=== PATIENT | male | born 1975 | race Caucasian/White ===

== ENCOUNTER 2017-01-17 10:51 | Emergency (ER) | payer OTHER ==
[~2017-01-17] VITALS: Ht 167.6 cm; Wt 86.6 kg
[~2017-01-17 10:51] MED LIST: CLINDAMYCIN HC300 MG PO; LEVAQUIN500 MG PO; NAPROSYN500 MG PO; VALACYCLOVIR500 MG PO
[2017-01-17 11:24] LABS: HEMATOCRIT 44.5 % (38.0-50.0); MCH 33.7 PG (29.0-34.0); MCHC 33.7 G/DL (30.0-36.0); MEAN PLAT.VOLUME 10.7 uM^3 (9.0-12.4); PLATELET COUNT 295 K/uL (156-360); RBC DIS.WIDTH-CV 12.5 % (11.8-14.6); RBC DIS.WIDTH-SD 46.2 % (39-53); RED BLOOD COUNT 4.45 M/uL (4.00-5.50); WHITE BLOOD COUNT 8.2 K/uL (4.1-10.2)
[2017-01-17 11:40] LABS: CHLORIDE 101 mEq/L (99-109); POTASSIUM 3.7 mEq/L (3.7-5.4); SODIUM 138 mEq/L (136-147)
[2017-01-17 11:42] LABS: GLUCOSE 149 mg/dL (70-99)
[2017-01-17 11:43] LABS: ANION GAP 9 MEQ/L (2-14)
[2017-01-17 11:44] LABS: TOTAL BILIRUBIN 0.7 mg/dL (0.0-1.0)
[2017-01-17 11:45] LABS: ALKALINE PHOSPHATASE 94 IU/L (3-129)
[2017-01-17 11:46] LABS: GFR ESTIMATE (CALCULATED) > 59 mL/min/
[2017-01-17 11:47] LABS: UREA NITROGEN (BUN) 10 mg/dL (9-23)
[2017-01-17 15:01] LABS: ADD MIUA? YES; BILIRUBIN NEGATIVE; BLOOD NEGATIVE; COLOR YELLOW ((YELLOW)); GLUCOSE (STRIP) NEGATIVE; KETONES NEGATIVE; LEUKOCYTES NEGATIVE; NITRITE NEGATIVE; PROTEIN (STRIP) NEGATIVE
[2017-01-17 15:04] LABS: BACTERIA RARE /HPF; EPITHELIAL CELLS RARE /HPF; MUCUS 1+ /LPF; RED BLOOD CELLS 0-5 /HPF (0-5); UCUL ADDED? NO; WHITE BLOOD CELLS 0-5 /HPF (0-5)
[2017-01-17] MEDS ORDERED: PRILOSEC20 MG PO (15:23)
[2017-01-17] MEDS ORDERED: BENTYL20 MG PO (15:23)
[2017-01-17] MEDS ORDERED: ZANTAC150 MG PO (15:23)
[2017-01-17 16:08] VITALS: BP 137/94
== END 2017-01-17 16:08 | disposition home or self-care (01) ==
LOC: EME 10:51
DX: R10.30 Lower abdominal pain, unspecified (principal); M54.5 Low back pain; K64.8 Other hemorrhoids; R73.03 Prediabetes; F06.4 Anxiety disorder due to known physiological condition; F10.10 Alcohol abuse, uncomplicated; F17.200 Nicotine dependence, unspecified, uncomplicated; Z71.6 Tobacco abuse counseling
CPT/HCPCS: 71020; 74020; 80053; 81003; 85027; 94640; 99281; 99285

== ENCOUNTER 2017-08-21 18:06 | Emergency (ER) | payer OTHER ==
[~2017-08-21] VITALS: Ht 167.6 cm; Wt 86.2 kg
[~2017-08-21 18:06] MED LIST changes: +BENTYL20 MG PO; +PRILOSEC20 MG PO; +ZANTAC150 MG PO
[2017-08-21 19:26] LABS: HEMATOCRIT 46.2 % (38.0-50.0); MCH 36.1 PG (29.0-34.0); MCHC 36.8 G/DL (30.0-36.0); MCV 98.1 FL (86-99); PLATELET COUNT 136 K/uL (156-360); RBC DIS.WIDTH-CV 12.7 % (11.8-14.6); RBC DIS.WIDTH-SD 46.5 % (39-53); RED BLOOD COUNT 4.71 M/uL (4.00-5.50); WHITE BLOOD COUNT 7.2 K/uL (4.1-10.2)
[2017-08-21 19:35] LABS: ALBUMIN 4.5 g/dL (3.2-4.8); CHLORIDE 95 mEq/L (99-109); POTASSIUM 3.1 mEq/L (3.7-5.4); SODIUM 138 mEq/L (136-147)
[2017-08-21 19:37] LABS: GLUCOSE 191 mg/dL (70-99); TOTAL PROTEIN 8.5 g/dL (6.4-8.3)
[2017-08-21 19:39] LABS: TOTAL BILIRUBIN 1.4 mg/dL (0.0-1.0)
[2017-08-21 19:40] LABS: SERUM ETHYL ALCOHOL 20 mg/dL
[2017-08-21 19:41] LABS: ALKALINE PHOSPHATASE 177 IU/L (3-129); CREATININE 0.8 mg/dL (0.6-1.3); GFR ESTIMATE (CALCULATED) > 59 mL/min/ (58.99-99999)
[2017-08-21 19:42] LABS: AST (GOT) 309 IU/L (2-34); UREA NITROGEN (BUN) 2 mg/dL (9-23)
[2017-08-21 19:44] LABS: ALT (GPT) 155 IU/L (3-49); LIPASE 39 U/L (1.0-51.0)
[2017-08-21] MEDS ORDERED: ZOFRAN ODT8 MG PO (21:39)
[2017-08-21] MEDS ORDERED: B-1100 MG PO (21:39)
[2017-08-21] MEDS ORDERED: CARAFATE1 GM PO (21:39)
[2017-08-21] MEDS ORDERED: VALIUM10 MG PO (21:39)
[2017-08-21 21:58] VITALS: BP 129/82
== END 2017-08-21 22:02 | disposition home or self-care (01) ==
LOC: EME 18:06
PROVIDERS: Physician Assistant
DX: R11.2 Nausea with vomiting, unspecified (principal); R10.13 Epigastric pain; R51 Headache; R05 Cough; F17.200 Nicotine dependence, unspecified, uncomplicated
CPT/HCPCS: 71045; 80053; 81003; 83690; 85027; 99281; 99285; G0480